=== PATIENT | female | born 1965 | race Caucasian/White ===

== ENCOUNTER 2016-06-23 10:20 | Emergency (ER) | payer OTHER ==
[2016-06-23 10:49] VITALS: BP 123/63
--- NOTE | 2016-06-23 11:11 | UC ---
Ear Complaint HPI - HPI Summary HPI Summary: LEFT EAR PAIN / PLUGGED X 2 WEEKS + NASAL CONGESTION, NO SINUS PRESSURE, NO FEVER, NO CHILLS - History of Current Complaint Chief Complaint: UCEar Stated Complaint: LEFT EAR PAIN Time Seen by Provider: 06/23/16 10:56 Hx Obtained From: Patient Hx Last Menstrual Period: 03/17/12 ?: No Onset/Duration: Gradual Onset, Lasting Weeks - 2, Still Present Severity Initially: Moderate Severity Currently: Moderate Aggravating Factors: Nothing Alleviating Factors: Nothing Associated Signs/Symptoms: Positive: Hearing Loss - LEFT EAR, URI Symptoms. Negative: Discharge, Foreign Body Sensation, Trauma to Ear, Swelling @ - Allergies/Home Medications Allergies/Adverse Reactions: Allergies Allergy/AdvReac Type Severity Reaction Status Date / Time No Known Allergies Allergy Verified 06/23/16 10:45 Home Medications: Home Medications [place] Carbonate TAB* 300 - 600 mg PO BID 06/23/16 [History Confirmed 06/23/16] Omeprazole CAP* [Prilosec CAP* 20 MG] 40 mg PO DAILY 06/23/16 [History Confirmed 06/23/16] PMH/Surg Hx/FS Hx/Imm Hx Previously Healthy: Yes - Surgical History Surgical History: Yes Surgery Procedure, Year, and Place: Tonsillectomy,,hand surgery - Family History Known Family History: Negative: Diabetes - Social History Alcohol Use: None Alcohol Amount: none for past 8 months Substance Use Type: None Substance Use Comment - Amount & Last Used: not since last week Smoking Status (MU): Heavy Every Day Tobacco Smoker Type: Cigarettes Amount Used/How Often: 1/2 ppd Length of Time of Smoking/Using Tobacco: 38 yrs Have You Smoked in the Last Year: Yes Review of Systems Constitutional: Negative Skin: Negative Eyes: Negative ENT: Ear Ache, Nasal Discharge Respiratory: Negative Cardiovascular: Negative Gastrointestinal: Negative All Other Systems Reviewed And Are Negative: Yes Physical Exam Triage Information Reviewed: Yes Appearance: Well-Appearing, No Pain Distress, Well-Nourished Vital Signs: Initial Vital Signs Temp 98.6 F 06/23/16 10:44 Pulse 80 06/23/16 10:44 Resp 16 06/23/16 10:44 BP 123/63 06/23/16 10:44 Pulse Ox 99 06/23/16 10:44 Vital Signs Reviewed: Yes Eyes: Positive: Conjunctiva Clear ENT: Positive: Normal ENT inspection, Hearing grossly normal, Pharynx normal, Pharyngeal erythema, TM bulging - BILATERAL. Negative: Nasal congestion, Nasal drainage Neck exam: Normal Neck: Positive: Supple, Nontender, No Lymphadenopathy Respiratory Exam: Normal Respiratory: Positive: Chest non-tender, Lungs clear, Normal breath sounds, No respiratory distress Skin Exam: Normal Ear Complaint Course/Dx - Differential Dx/Diagnosis Provider Diagnoses: ESTACHIAN TUBE DYSFUNCTION Discharge - Discharge Plan Condition: Stable Disposition: HOME Prescriptions: Fluticasone NASAL SPRAY 50MCG* [Flonase NASAL SPRAY 50MCG*] 2 spray BOTH NARES DAILY #1 btl Patient Education Materials: Eustachian Tube Dysfunction (GEN) Referrals: Keila Lay [Primary Care Provider] - If Needed
== END 2016-06-23 11:20 | disposition home or self-care (01) ==
LOC: UCCORT 10:20
DX: H69.92 Unspecified Eustachian tube disorder, left ear (principal); F17.210 Nicotine dependence, cigarettes, uncomplicated
CPT/HCPCS: 99212; G0463

== ENCOUNTER → 2016-07-13 15:39 | Emergency (ER) | payer SELFPAY ==
[~2016-07-13 15:39] MED LIST: PPD test dose* 5 TU/0.1 ML TEST (*USE PPD ORDER SET*) ONE
== END | disposition home or self-care (01) ==
LOC: OHCORT 15:39
DX: Z11.1 Encounter for screening for respiratory tuberculosis (principal)

== ENCOUNTER 2017-07-14 17:52 | Emergency (ER) | payer OTHER ==
[2017-07-14 18:38] VITALS: BP 139/85
--- NOTE | 2017-07-14 19:39 | UC ---
Neck Pain HPI - HPI Summary HPI Summary: neck pain x 10 days + numbness of the left hand and fingers, + weakness of left hand no know injury , hx of herniated cervical spine, has been seen by neurosurgery - History of Current Complaint Chief Complaint: UCUpperExtremity Stated Complaint: PAIN/NUMB NECK, ARM, SHOULDER, ELBOW Time Seen by Provider: 07/14/17 18:56 Hx Obtained From: Patient Hx Last Menstrual Period: 03/17/12 Onset/Duration Of Injury/Symptoms: Days - 10 Mechanism Of Injury: No Known Trauma Timing: Constant Onset/Duration: Gradual Onset, Lasting Days - 10, Still Present Severity: Moderate Pain Intensity: 7 Pain Scale Used: 0-10 Numeric Location: Discrete At: - neck Character: Aching, Stiff Aggravating Factors: Movement Alleviating Factors: Nothing Associated Signs & Symptoms: Positive: Weakness - left hand, Paresthesia - left hand - Allergies/Home Medications Allergies/Adverse Reactions: Allergies Allergy/AdvReac Type Severity Reaction Status Date / Time No Known Allergies Allergy Verified 07/14/17 18:38 Home Medications: Home Medications Ibuprofen [Motrin Ib] 400 mg PO 07/14/17 [History] PMH/Surg Hx/FS Hx/Imm Hx Respiratory History: Asthma GI/ History: Gastroesophageal Reflux Psychological History: Anxiety, Depression, Bipolar Disorder - Surgical History Surgical History: Yes Surgery Procedure, Year, and Place: Tonsillectomy,,hand surgery - Family History Known Family History: Negative: Diabetes - Social History Alcohol Use: None Alcohol Amount: none for past 8 months Substance Use Type: None Substance Use Comment - Amount & Last Used: not since last week Smoking Status (MU): Heavy Every Day Tobacco Smoker Type: Cigarettes Amount Used/How Often: 1/2 ppd Length of Time of Smoking/Using Tobacco: 38 yrs Have You Smoked in the Last Year: Yes Review Of Systems Constitutional: Positive: Negative Skin: Positive: Negative Eyes: Positive: Negative ENT: Positive: Negative Respiratory: Positive: Negative All Other Systems Reviewed And Are Negative: Yes Physical Exam Triage Information Reviewed: Yes Appearance: Well-Appearing, Well-Nourished, Pain Distress Vital Signs: Initial Vital Signs Temp 98.7 F 07/14/17 18:31 Pulse 88 07/14/17 18:31 Resp 18 07/14/17 18:31 BP 139/85 07/14/17 18:31 Pulse Ox 99 03/07/18 18:31 Vital Signs Reviewed: Yes Eyes: Positive: Conjunctiva Clear ENT: Positive: Normal ENT inspection, Hearing grossly normal, Pharynx normal Neck: Positive: Tenderness @, Other: - pain with any ROM Respiratory: Positive: Chest non-tender, Lungs clear, Normal breath sounds Cardiovascular: Positive: RRR, No Murmur, Pulses Normal Abdominal Exam: Normal Neurological Exam: Normal Neurological: Positive: Alert. Negative: Muscle Tone Normal, Fatigued, Lethargic Skin Exam: Normal Neck Pain Course/Dx - Differential Dx/Diagnosis Provider Diagnoses: neck pain. radiculopathy left upper ext Discharge - Discharge Plan Condition: Stable Disposition: HOME Prescriptions: Hydrocodone/Acetaminophen [Wells 5-325 mg] 1 tab PO Q6H #20 tab MDD 4 tabs predniSONE [Prednisone] 40 mg PO DAILY WITH MEAL #14 tablet Patient Education Materials: Cervical Disc Herniation (ED), Acute Neck Pain (ED ) Forms: *Work Release Referrals: Keila Lay [Primary Care Provider] - Additional Instructions: please follow up with your neurosurgeon in one week
== END 2017-07-14 19:20 | disposition home or self-care (01) ==
LOC: UCCORT 17:52
DX: M54.2 Cervicalgia (principal); M54.10 Radiculopathy, site unspecified; F17.210 Nicotine dependence, cigarettes, uncomplicated
CPT/HCPCS: 99212; G0463

== ENCOUNTER 2018-05-31 17:02 | Emergency (ER) | payer OTHER ==
[2018-05-31 17:37] VITALS: BP 131/70
[2018-05-31 17:51] LABS: Influenza A Molecular POSITIVE (Negative)
== END 2018-05-31 18:22 | disposition left against medical advice (07) ==
LOC: UCCORT 17:02
DX: Z53.21 Procedure and treatment not carried out due to patient leaving prior to being seen by health care provider (principal)

== ENCOUNTER 2019-09-01 11:39 | Emergency (ER) | payer OTHER ==
[2019-09-01 12:01] VITALS: BP 146/81
--- NOTE | 2019-09-01 12:19 | UC ---
Shoulder Pain HPI - HPI Summary HPI Summary: 53 yo female presents with LEFT shoulder/upper back pain. 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 As the day progressed she noticed increasing pain in her left upper back and shoulder that was worse with movement. Since that time she has had pain in this area. Has been taking ibuprofen (last dose 10:00 today) with mild temporary improvement. She has a history of herniated cervical discs and has been evaluated by neurosurg and states they "want to do surgery". States pain today is not her neck and feels different than her usual neck pain. She has pain radiating down her left shoulder into her left upper arm and elbow. Pain worse with lifting arm and better with keeping arm at side. Denies numbness, tingling, SOB, chest pain, or specific injury. - History of Current Complaint Chief Complaint: UCUpperExtremity Stated Complaint: L SHOULDER CONCERN Hx Obtained From: Patient Hx Last Menstrual Period: N/A Onset/Duration: Gradual Onset Timing: Constant Severity Initially: Moderate Severity Currently: Moderate Pain Intensity: 8 Pain Scale Used: 0-10 Numeric - Allergies/Home Medications Allergies/Adverse Reactions: Allergies Allergy/AdvReac Type Severity Reaction Status Date / Time No Known Allergies Allergy Verified 09/01/19 11:55 Home Medications: Home Medications Omeprazole CAP (NF) [Prilosec CAP* 20 MG] 40 mg PO DAILY 06/23/16 [History Confirmed 09/01/19] [place] Carbonate TAB* 300 mg PO DAILY 05/31/18 [History Confirmed 09/01/19] Cyclobenzaprine TAB* [Flexeril 10 MG TAB*] 10 mg PO BID PRN #14 tab 09/01/19 [Rx ] PMH/Surg Hx/FS Hx/Imm Hx - Additional Past Medical History Additional PMH: Cervical disc disease Psychological History: Bipolar Disorder - Surgical History Surgical History: Yes Surgery Procedure, Year, and Place: Tonsillectomy,,hand surgery - Family History Known Family History: Negative: Diabetes - Social History Lives: With Family Alcohol Use: None Substance Use Type: None Smoking Status (MU): Heavy Every Day Tobacco Smoker Type: Cigarettes Amount Used/How Often: 2 ppd Length of Time of Smoking/Using Tobacco: 38 yrs Have You Smoked in the Last Year: Yes Review of Systems All Other Systems Reviewed And Are Negative: No Constitutional: Positive: Negative Skin: Positive: Negative Respiratory: Positive: Negative Cardiovascular: Positive: Negative Gastrointestinal: Positive: Negative Neurovascular: Positive: Negative Musculoskeletal: Positive: Other: - Left shoulder pain Neurological/Mental Status: Positive: Negative Psychological: Positive: Negative Physical Exam - Summary Physical Exam Summary: GENERAL: NAD. WDWN. No pain distress. SKIN: No rashes, sores, lesions, or open wounds. NECK: Supple. FROM. No vertebral ttp. No LAD appreciated CHEST: No accessory muscle use. Breathing comfortably and in no distress. CV: Pulses intact radial and ulnar. Cap refill <2seconds MSK: LEFT SHOULDER: TTP left upper trapezius and posterior shoulder. TTP about humeral head. Pain reproduced with flexion >90deg. Strength 5/5. No edema or obvious bony deformities. Negative empty can. POSITIVE yergason test. NEURO: Alert. Sensations intact hand and all fingers. PSYCH: Age appropriate behavior. Triage Information Reviewed: Yes Vital Signs: Initial Vital Signs Temp 97.6 F 09/01/19 11:57 Pulse 87 09/01/19 11:57 Resp 17 09/01/19 11:57 BP 146/81 09/01/19 11:57 Pulse Ox 98 09/01/19 11:57 Vital Signs Reviewed: Yes Diagnostics - Radiology Shoulder XR Radiology Interpretation Completed By: Radiologist Summary of Radiographic Findings: IMPRESSION: MILD OSTEOARTHRITIS. NO ACUTE OSSEOUS INJURY. IF SYMPTOMS PERSIST, RECOMMEND REPEAT IMAGING. Shoulder Course/Dx - Course Course Of Treatment: XR without acute findings as above. Suspect overuse/repetitive motion injury/spasm vs RTC tendinitis. Advised to continue rest, ice alternating with heat, and ibuprofen as directed. Gentle stretching. Will rx for flexeril. She is requesting a note for work as she missed 08/28 due to pain. Is scheduled to work tomorrow. Will refer her to Orthopedics to f/u if pain continues or does not improve. - Differential Dx/Diagnosis Differential Diagnosis/HQI/PQRI: AC Separation, Arthritis, Rotator Cuff Injury, Strain, Tendonitis Provider Diagnosis: Left shoulder pain Discharge ED - Sign-Out/Discharge Documenting (check all that apply): Patient Departure All imaging exams completed and their final reports reviewed: Yes - Discharge Plan Condition: Stable Disposition: HOME Prescriptions: Cyclobenzaprine TAB* [Flexeril 10 MG TAB*] 10 mg PO BID PRN #14 tab PRN Reason: Pain - Moderate Patient Education Materials: Muscle Spasm (ED), Shoulder Pain (ED) Forms: *Work Release Referrals: No Primary Care Phys,NOPCP [Primary Care Provider] - Ruiz Wise MD [Medical Doctor] - If Needed Additional Instructions: If you develop a fever, shortness of breath, chest pain, new or worsening symptoms - please call your PCP or go to the ED immediately. Your blood pressure was high at todays visit. Please see your primary provider within 4 weeks for recheck and re-evaluation. I recommend that you call Orthopedics at the number below to schedule an appointment for a recheck if your shoulder pain does not improve in 4-5 days. Rest and apply heat to the area to decrease pain and tightness - Billing Disposition and Condition Condition: STABLE Disposition: Home - Attestation Statements Provider Attestation: This patient was not seen by me. I was available for consult. Chart reviewed. JULIANA
== END 2019-09-01 12:40 | disposition home or self-care (01) ==
LOC: UCCORT 11:39
DX: M25.512 Pain in left shoulder (principal); M19.012 Primary osteoarthritis, left shoulder; F31.9 Bipolar disorder, unspecified; Z79.899 Other long term (current) drug therapy; F17.210 Nicotine dependence, cigarettes, uncomplicated
CPT/HCPCS: 99212; G0463